=== PATIENT | female | born 1935 | race Caucasian/White ===

== ENCOUNTER → 2016-06-22 | Outpatient (CLI) | payer OTHER | END | disposition home or self-care (01) | LOC: CDC 11:52 | DX: I44.7 Left bundle-branch block, unspecified (principal); M79.641 Pain in right hand; G56.01 Carpal tunnel syndrome, right upper limb; M79.644 Pain in right finger(s); M19.041 Primary osteoarthritis, right hand | CPT/HCPCS: 93000 ==